=== PATIENT | female | born 1995 | race Caucasian/White ===

== ENCOUNTER 2017-04-28 20:20 | Emergency (ER) | payer OTHER ==
[~2017-04-28] VITALS: Ht 162.6 cm; Wt 74.8 kg
--- NOTE | ~2017-04-28 | CT4 ---
[facility] A Service of [facility] RADIOLOGY TEXT RESULTS PATIENT: SURYA RODGERS LOCATION: SED : [birth year] UNIT #: [id number] AGE: [address]: Bouchra Huggins SEX: F ORDER DR: [id number] [address] [address] [id number] E MR#: [id number] Acc #: [id number] NAME: SURYA RODGERS : 1995 SEX: F STUDY DATE/TIME: 04/28/2017 21:49 UNIT: SED ROOM: STUDY DESCRIPTION: CT Abd and Pelv Wo Cont Attending Physician: Bouchra Huggins Pa-C Ordering Physician: Bouchra Huggins Pa-C MEDICAL IMAGING REPORT This report is preliminary unless electronic signature is present. EXAM CT abdomen and pelvis without contrast HISTORY Right-side abdomen pain, nausea and vomiting today. TECHNIQUE This CT exam was performed with one or more of the following radiation dose reduction techniques: automatic control, adjustment of mA and/or kV according to patient size, and iterative reconstruction. FINDINGS CT abdomen and pelvis was performed without contrast CT ABDOMEN: The liver, gallbladder, spleen, pancreas, kidneys, and adrenal glands are normal. No bowel dilatation. No ascites. No inflammatory stranding. Small umbilical hernia containing fat. Normal caliber abdominal aorta. CT PELVIS: Appendiceal dilatation measuring up to 1.6 cm with extensive periappendiceal stranding extending to the tip of the cecum in the right pelvis. There is also a 6 mm appendicolith. Findings are characteristic of acute appendicitis. No free fluid in the pelvis. No bowel dilatation. Urinary bladder is normal. Uterus and adnexa are unremarkable. IMPRESSION 1. Acute appendicitis with periappendiceal stranding in the right pelvis. The appendix measures up to 1.6 cm and there is a 6 mm appendicolith. 2. No acute findings in the remainder of the abdomen or pelvis. [facility] A Service of [facility] RADIOLOGY TEXT RESULTS PATIENT: SURYA RODGERS LOCATION: SED : [birth year] UNIT #: [id number] AGE: [address]: Bouchra Huggins SEX: F ORDER DR: Dictated by... Shashi Ordonez M.D. THIS IS AN ELECTRONICALLY VERIFIED REPORT Shashi Ordonez M.D. at 04/29/2017 11:21 PM DFL/martinez TD: 04/28/2017 23:53 JOB #: [id number] MEDICAL IMAGING REPORT Page 1 of 1
[2017-04-28] MEDS ORDERED: XULANE PATCH1 EACH (20:33)
[2017-04-28 21:12] LABS: URINE SOURCE CLEAN CATCH
[2017-04-28 21:15] LABS: URINE APPEARANCE HAZY; URINE BILIRUBIN NEG (NEG); URINE BLOOD NEG (NEG); URINE COLOR YELLOW; URINE GLUCOSE NEG (NORM); URINE KETONE TRACE (NEG); URINE LEUKOCYTE ESTERASE NEG (NEG); URINE NITRATE NEG (NEG); URINE PROTEIN NEG (NEG); URINE UROBILINOGEN 0.2 MG/DL (NORM)
[2017-04-28 21:17] LABS: MICRO INDICATED? NO
[2017-04-28 21:31] LABS: BASOPHIL% 0.3 % (0-2.5); EOSINOPHIL% 0.1 % (0.0-7.0); HEMATOCRIT 39.2 % (35.0-45.0); HEMOGLOBIN 13.8 gm/dL (12.0-16.0); LYMPHOCYTE# 1.8 X10e3 (1.0-3.5); LYMPHOCYTE% 16.5 % (17.0-45.0); MEAN CELL VOLUME 83.8 FL (83-96); MEAN CORPUSCULAR HEMOGLOBIN 29.5 PG (28-34); MEAN CORPUSCULAR HGB CONC 35.2 g/dL (30-36); MEAN PLATELET VOLUME 7.6 FL (6.5-11.5); MONOCYTE# 0.2 X10e3 (0-1.0); MONOCYTE% 2.2 % (3.0-12.0); NEUTROPHIL# 8.6 X10e3 (1.5-7.1); NEUTROPHIL% 80.9 % (40-75); PLATELET COUNT 218 X10e3 (140-420); RED BLOOD COUNT 4.68 X10e (3.90-5.30); RED CELL DISTRIBUTION WIDTH 12.4 % (11.0-15.5); WHITE BLOOD COUNT 10.6 X10e3 (4.0-10.5)
[2017-04-28 21:38] LABS: DIFF IND NO
[2017-04-28 21:55] LABS: ALBUMIN SERUM 4.2 g/dL (3.5-5.0); ALKALINE PHOSPHATASE 76 U/L (32-92); ALT (SGPT) 13 U/L (10-40); AST (SGOT) 19 U/L (10-42); BILIRUBIN,TOTAL 0.7 mg/dL (0.2-2.0); BLOOD UREA NITROGEN 8 mg/dL (9-23); BUN/CREATININE RATIO 13.33; CALCIUM SERUM 9.6 mg/dL (8.4-10.2); CARBON DIOXIDE 27 mmol/L (22-31); CHLORIDE 105 mmol/L (100-111); CREATININE SERUM 0.6 mg/dL (0.6-1.4); GLOM FILT RATE Estimated 131.2 mL/min (>60); GLUCOSE FASTING 106 mg/dL (70-110); LIPASE 22 U/L (22-51); SODIUM 141 mmol/L (135-145)
[2017-04-28 21:59] LABS: BILIRUBIN, DIRECT <0.1 mg/dL (0.0-0.2); BILIRUBIN,INDIRECT 0.6 mg/dL (0.0-0.9)
== END 2017-04-29 00:10 | disposition hospice, home (50) ==
LOC: SED 20:20
PROVIDERS: Physician Assistant
DX: K37 Unspecified appendicitis (principal); I10 Essential (primary) hypertension; J45.909 Unspecified asthma, uncomplicated
CPT/HCPCS: 36415; 74176; 80048; 80076; 81003; 83690; 84703; 85025; 96361; 96374; 96375; 99285; J1885; J2405; J2543